=== PATIENT | male | born 1950 ===

== ENCOUNTER → 2016-05-29 | Outpatient (CLI) | payer MEDICARE, OTHER ==
[2016-05-29 14:37] LABS: ALBUMIN 3.8 gm/dL (3.5-5.0); ANION GAP 12.3 (10.0-19.0); BLOOD UREA NITROGEN 19 mg/dL (6-24); CALCIUM 8.8 mg/dL (8.5-10.5); CHLORIDE 109 mMol/L (96-110); CO2 23 mMol/L (22-32); ESTIMATED GFR (MDRD EQUATION) > 60; PHOSPHORUS 2.8 mg/dL (2.5-4.9); POTASSIUM 4.3 mMol/L (3.7-5.1); SODIUM 140 mMol/L (135-145)
== END | disposition disaster alternative care site (69) ==
LOC: LCNC 14:11
PROVIDERS: Internal Medicine Interventional Cardiology
DX: I48.92 Unspecified atrial flutter (principal)